=== PATIENT | female | born 1955 | race Caucasian/White ===

== ENCOUNTER 2016-05-28 07:11 | Emergency (ER) | payer OTHER ==
[~2016-05-28] VITALS: Ht 157.5 cm; Wt 47.6 kg
[~2016-05-28 07:11] MED LIST: ASPI-482 PO; DILT180C2 PO
[2016-05-28 07:40] VITALS: BP 165/90
--- NOTE | 2016-05-28 07:52 | PHYS DOC ---
Past Medical History Past Medical History: Arrhythmia, Other Additional Past Medical Histor: atrial flutter Past Surgical History: Appendectomy, Hysterectomy Additional Past Surgical Histo: cardiac ablation Alcohol Use: None Drug Use: None Adult General Chief Complaint Chief Complaint: LACERATION/AVULSION [facility] HPI Patient is a 61 year old female presents emergency room with complaint of cutting her left index finger on a blood culture bottle that was broken. 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 She denies any shattered glass striking her in the face/eyes. Patient comes to the emergency room instead of following the protocol for on-site employee injury. Patient herself denies any history of blood borne diseases. She states that she does not quite remember when her last tetanus shot was. Review of Systems Review of Systems Constitutional: Denies fever or chills [] Eyes: Denies change in visual acuity, redness, or eye pain [] HENT: Denies nasal congestion or sore throat [] Respiratory: Denies cough or shortness of breath [] Cardiovascular: No additional information not addressed in HPI [] GI: Denies abdominal pain, nausea, vomiting, bloody stools or diarrhea [] : Denies dysuria or hematuria [] Musculoskeletal: Denies back pain or joint pain [] Integument: Denies rash or skin lesions [] Neurologic: Denies headache, focal weakness or sensory changes [] Endocrine: Denies polyuria or polydipsia [] Allergies Allergies Allergies Coded Allergies Type Severity Reaction Last Updated Verified No Known Drug Allergies 12/05/14 No Physical Exam Physical Exam Constitutional: Well developed, well nourished, no acute distress, non-toxic appearance. [] HENT: Normocephalic, atraumatic, bilateral external ears normal, oropharynx moist, no oral exudates, nose normal. [] Eyes: PERRLA, EOMI, conjunctiva normal, no discharge. [] Neck: Normal range of motion, no tenderness, supple, no stridor. [] Cardiovascular:Heart rate regular rhythm, no murmur [] Lungs & Thorax: Bilateral breath sounds clear to auscultation [] Abdomen: Bowel sounds normal, soft, no tenderness, no masses, no pulsatile masses. [] Skin: Left index finger with a puncture of the distal phalanx, palmar aspect. There is no active bleeding. There is a small, palpable sliver of glass within the puncture itself. Back: No tenderness, no CVA tenderness. [] Extremities: No tenderness, no cyanosis, no clubbing, ROM intact, no edema. [] Neurologic: Alert and oriented X 3, normal motor function, normal sensory function, no focal deficits noted. [] Psychologic: Affect normal, judgement normal, mood normal. [] Current Patient Data Vital Signs Vital Signs Date Time Temp Pulse Resp B/P Pulse Ox O2 Delivery O2 Flow Rate FiO2 05/28/16 07:40 97.8 72 18 165/90 96 Room Air 97.8 EKG EKG [] Radiology/Procedures Radiology/Procedures Procedure note: The sliver of glass was manually removed with hemostats. Patient tolerated the procedure well. There was no bleeding after removal. Course & Med Decision Making Course & Med Decision Making Patient was seen by the occupational health nurse. She was given the appropriate paperwork and directions to where she needs to go for laboratory test and follow-up. Patient had no further questions for me. She requested discharge. Dragon Disclaimer Dragon Disclaimer This electronic medical record was generated, in whole or in part, using a voice recognition dictation system. Departure Departure Impression: Primary Impression: Exposure to blood Disposition: 01 HOME, SELF-CARE Condition: GOOD Referrals: DENISA FRANK MD (PCP) Patient Instructions: Body Fluid Exposure, Foreign Body-Brief Additional Instructions: 1. The sliver of glass was removed from your skin without difficulty. 2. Review the discharge instructions provided for self-care and reasons to return to the emergency department. 3. Be sure to follow the guidelines provided to you by the employee health nurse. GAVINO BEDOLLA May 28, 2016 07:52
== END 2016-05-28 08:32 | disposition home or self-care (01) ==
LOC: ER 07:11
DX: S61.211A Laceration without foreign body of left index finger without damage to nail, initial encounter (principal); I48.92 Unspecified atrial flutter; W25.XXXA Contact with sharp glass, initial encounter; Y93.89 Activity, other specified; Y99.8 Other external cause status; Y92.89 Other specified places as the place of occurrence of the external cause
CPT/HCPCS: 10120; 99284-25

== ENCOUNTER → 2016-08-12 | Outpatient (CLI) | payer OTHER ==
--- NOTE | 2016-08-12 16:16 | CARD ---
APPROVED REPORT EXAM: Two-dimensional and M-mode echocardiogram with Doppler and color Doppler. Other Information Quality : Good INDICATION Aflutter 2D DIMENSIONS RVDd2.8 (2.9-3.5cm)Left Atrium(2D)2.6 (1.6-4.0cm) IVSd0.8 (0.7-1.1cm)Aortic Root(2D)2.3 (2.0-3.7cm) LVDd3.7 (3.9-5.9cm)LVOT Diameter1.8 (1.8-2.4cm) PWd0.8 (0.7-1.1cm)LVDs2.3 (2.5-4.0cm) FS (%) 30.0 %SV38.3 ml LVEF(%)60.0 (>50%) Aortic Valve AoV Peak Jeff.114.3cm/sAoV VTI25.4cm AO Peak GR.5.2mmHgLVOT Peak Jeff.110.5cm/s LVOT VTI 23.77cmAO Mean GR.3mmHg JUJU (VMAX)2.97ie2GIW (VTI)2.31cm2 Mitral Valve MV E Ycicrctw16.9cm/sMV DECEL BNJW341uh MV A Aoseovyn56.4cm/sMV OPE00bc E/A Ratio1.5MVA (PHT)4.82cm2 TDI E/Lateral E'7.6E/Medial E'8.9 Tricuspid Valve TR P. Hwtdkest668bd/sRAP DQGLGTAC5zmYz TR Peak Gr.97prEoTWSX38elUs Pulmonary Vein S1 Mqtjyvgr70.2cm/sD2 Sqltbatr22.0cm/s PVa fepiqrez386ikmk LEFT VENTRICLE The left ventricle is normal size. There is normal left ventricular wall thickness. The left ventricu lar systolic function is normal. The Ejection Fraction is 55-60%. There is normal LV segmental wall m otion. Transmitral Doppler flow pattern is Grade II-pseudonormal filling dynamics. RIGHT VENTRICLE The right ventricle is normal size. The right ventricular systolic function is normal. ATRIA The left atrium size is normal. The right atrium size is normal. The interatrial septum is intact wit h no evidence for an atrial septal defect or patent foramen ovale as noted on 2-D or Doppler imaging. AORTIC VALVE The aortic valve is normal in structure and function. Doppler and Color Flow revealed no significant aortic regurgitation. There is no significant aortic valvular stenosis. MITRAL VALVE The mitral valve is normal in structure and function. There is no evidence of mitral valve prolapse. There is no mitral valve stenosis. Doppler and Color-flow revealed trace mitral regurgitation. TRICUSPID VALVE The tricuspid valve is normal in structure and function. Doppler and Color Flow revealed mild tricusp id regurgitation. The PA pressure was estimated at 27 mmHg. There is no tricuspid valve stenosis. PULMONIC VALVE The pulmonary valve is normal in structure and function. Doppler and Color Flow revealed mild pulmoni c valvular regurgitation. There is no pulmonic valvular stenosis. GREAT VESSELS The aortic root is normal in size. The ascending aorta is normal in size. The IVC is normal in size a nd collapses >50% with inspiration. PERICARDIAL EFFUSION There is no evidence of significant pericardial effusion. Critical Notification Critical Value: No <Conclusion> The left ventricular systolic function is normal. The Ejection Fraction is 55-60%. There is normal LV segmental wall motion. Trace mitral regurgitation. Mild tricuspid regurgitation. The PA pressure was estimated at 27 mmHg. There is no evidence of significant pericardial effusion.
== END | disposition home or self-care (01) ==
LOC: ECHO 06:52
PROVIDERS: ATTEND Internal Medicine Cardiovascular Disease
DX: I08.1 Rheumatic disorders of both mitral and tricuspid valves (principal)
CPT/HCPCS: 93306

== ENCOUNTER → 2017-04-01 | Outpatient (CLI) | payer OTHER ==
--- NOTE | 2017-04-02 08:51 | RAD ---
DATE: 04/01/2017 EXAM: DIGITAL SCREEN BILAT W/CAD HISTORY: Routine screening COMPARISON: 02/04/2016 This study was interpreted with the benefit of Computerized Aided Detection (CAD). The breast parenchyma is heterogeneously dense, which could reduce sensitivity of mammography. Breast parenchyma level C. FINDINGS: No new or enlarging breast densities are seen. Benign type calcifications are present. No suspicious microcalcifications have developed. IMPRESSION: Stable mammograms without evidence of malignancy. BI-RADS CATEGORY: 2 BENIGN FINDING(S) RECOMMENDED FOLLOW-UP: 12M 12 MONTH FOLLOW-UP PQRS compliance statement: Patient information was entered into a reminder system with a target due date for the next mammogram. Mammography is a sensitive method for finding small breast cancers, but it does not detect them all and is not a substitute for careful clinical examination. A negative mammogram does not negate a clinically suspicious finding and should not result in delay in biopsying a clinically suspicious abnormality. "Our facility is accredited by the [employer] Mammography Program."
== END | disposition home or self-care (01) ==
LOC: MAMMO 14:08
PROVIDERS: ATTEND Obstetrics & Gynecology
DX: Z12.31 Encounter for screening mammogram for malignant neoplasm of breast (principal)
CPT/HCPCS: G0202; 77067

== ENCOUNTER → 2017-06-11 | Outpatient (CLI) | payer OTHER ==
[2017-06-11 09:26] LABS: ADD MAN DIFF? NO
[2017-06-11 09:37] LABS: BASO % 1 % (0-3); EOS % 1 % (0-3); HEMATOCRIT 42.9 % (36.0-47.0); HEMOGLOBIN 14.4 g/dL (12.0-15.5); LYMPH # 1.4 x10^3/uL (1.0-4.8); LYMPH % 21 % (24-48); MEAN CORPUSCULAR HEMOGLOBIN 30 pg (25-35); MEAN CORPUSCULAR HGB CONC 34 g/dL (31-37); MEAN CORPUSCULAR VOLUME 91 fL (79-100); MONO # 0.4 x10^3/uL (0.0-1.1); MONO % 6 % (0-9); NEUT # 4.5 x10^3uL (1.8-7.7); NEUT % 72 % (31-73); PLATELET COUNT 190 x10^3/uL (140-400); RED BLOOD COUNT 4.74 x10^6/uL (3.50-5.40); RED CELL DISTRIBUTION WIDTH 13.5 % (11.5-14.5); WHITE BLOOD COUNT 6.3 x10^3/uL (4.0-11.0)
[2017-06-11 09:47] LABS: ALBUMIN 4.1 g/dL (3.4-5.0); ALBUMIN/GLOBULIN RATIO 1.4 (1.0-1.7); ALK PHOS 79 U/L (46-116); ALT (SGPT) 27 U/L (14-59); ANION GAP 7 (6-14); AST (SGOT) 19 U/L (15-37); BLOOD UREA NITROGEN 14 mg/dL (7-20); BUN/CREATININE RATIO 20 (6-20); CALCIUM 9.2 mg/dL (8.5-10.1); CARBON DIOXIDE 30 mmol/L (21-32); CHLORIDE 103 mmol/L (98-107); CHOLESTEROL 230 mg/dL (0-200); CHOLESTEROL/HDL RATIO 2.4; CREATININE 0.7 mg/dL (0.6-1.0); GFR 84.2; GLUCOSE 108 mg/dL (70-99); HDLC 97 mg/dL (40-60); LDLC 121 mg/dL (0-100); LIPASE 146 U/L (73-393); NON-HDL CHOLESTEROL 133 mg/dL (0-129); POTASSIUM 3.9 mmol/L (3.5-5.1); SODIUM 140 mmol/L (136-145); TOTAL BILIRUBIN 0.7 mg/dL (0.2-1.0); TOTAL PROTEIN 7.1 g/dL (6.4-8.2); TRIGLYCERIDES 61 mg/dL (0-150); VLDLC 12 mg/dL (0-40)
[2017-06-12 01:14] LABS: HEMOGLOBIN A1C 5.6 % (4.8-5.6)
== END | disposition home or self-care (01) ==
LOC: LAB 05:39
DX: Z13.220 Encounter for screening for lipoid disorders (principal); R10.9 Unspecified abdominal pain; Z79.899 Other long term (current) drug therapy
CPT/HCPCS: 36415; 80053; 80061; 83036; 83690; 85025

== ENCOUNTER → 2017-06-16 | Outpatient (CLI) | payer OTHER | END | disposition home or self-care (01) | LOC: US 07:10 | DX: R10.9 Unspecified abdominal pain (principal) | CPT/HCPCS: 76700 ==

== ENCOUNTER → 2017-09-17 | Outpatient (CLI) | payer OTHER ==
[2017-09-17 07:01] LABS: ADD MAN DIFF? NO
[2017-09-17 07:21] LABS: BASO # 0.1 x10^3/uL (0.0-0.2); BASO % 1 % (0-3); EOS # 0.1 x10^3/uL (0.0-0.7); EOS % 2 % (0-3); HEMATOCRIT 44.7 % (36.0-47.0); HEMOGLOBIN 15.3 g/dL (12.0-15.5); LYMPH # 1.1 x10^3/uL (1.0-4.8); LYMPH % 19 % (24-48); MEAN CORPUSCULAR HEMOGLOBIN 31 pg (25-35); MEAN CORPUSCULAR HGB CONC 34 g/dL (31-37); MEAN CORPUSCULAR VOLUME 89 fL (79-100); MONO # 0.4 x10^3/uL (0.0-1.1); MONO % 8 % (0-9); NEUT % 70 % (31-73); PLATELET COUNT 192 x10^3/uL (140-400); RED BLOOD COUNT 5.01 x10^6/uL (3.50-5.40); RED CELL DISTRIBUTION WIDTH 13.5 % (11.5-14.5); WHITE BLOOD COUNT 5.7 x10^3/uL (4.0-11.0)
[2017-09-17 07:36] LABS: ALBUMIN 4.3 g/dL (3.4-5.0); ALBUMIN/GLOBULIN RATIO 1.3 (1.0-1.7); ALK PHOS 90 U/L (46-116); ALT (SGPT) 26 U/L (14-59); ANION GAP 8 (6-14); AST (SGOT) 22 U/L (15-37); BLOOD UREA NITROGEN 19 mg/dL (7-20); BUN/CREATININE RATIO 27 (6-20); CALCIUM 9.5 mg/dL (8.5-10.1); CARBON DIOXIDE 30 mmol/L (21-32); CHLORIDE 102 mmol/L (98-107); CHOLESTEROL 240 mg/dL (0-200); CREATININE 0.7 mg/dL (0.6-1.0); GFR 84.2; GLUCOSE 105 mg/dL (70-99); HDLC 88 mg/dL (40-60); MAGNESIUM 2.6 mg/dL (1.8-2.4); POTASSIUM 4.1 mmol/L (3.5-5.1); SODIUM 140 mmol/L (136-145); TOTAL BILIRUBIN 0.6 mg/dL (0.2-1.0); TOTAL PROTEIN 7.5 g/dL (6.4-8.2); TRIGLYCERIDES 69 mg/dL (0-150); VLDLC 14 mg/dL (0-40)
[2017-09-17 07:37] LABS: LDLC 138 mg/dL (0-100); NON-HDL CHOLESTEROL 152 mg/dL (0-129)
[2017-09-17 07:40] LABS: CHOLESTEROL/HDL RATIO 2.7
[2017-09-17 07:46] LABS: THYROID STIM HORMONE (TSH) 2.717 uIU/mL (0.358-3.74)
[2017-09-17 09:01] LABS: VITAMIN-B12 518 pg/mL (247-911)
[2017-09-17 09:02] LABS: FOLATE 13.23 ng/ml (3.2-20.0)
[2017-09-17 09:23] LABS: BILIRUBIN,URINE NEGATIVE (NEG); CLARITY,URINE CLEAR; COLOR,URINE YELLOW; GLUCOSE,URINE NEGATIVE (NEG); NITRITE,URINE NEGATIVE (NEG); PH,URINE 5.5; PROTEIN,URINE NEGATIVE (NEG-TRACE); UROBILINOGEN,URINE 0.2 mg/dL (0.2 mg/dL)
[2017-09-17 09:41] LABS: BACTERIA,URINE 0 /HPF (0-FEW); RBC,URINE 0 /HPF (0-2)
[2017-09-17 12:19] LABS: THYROXINE 6.8 ug/dL (4.5-12.0)
[2017-09-18 02:21] LABS: HEMOGLOBIN A1C 5.5 % (4.8-5.6)
== END | disposition home or self-care (01) ==
LOC: LAB 06:56
DX: I48.92 Unspecified atrial flutter (principal); E78.5 Hyperlipidemia, unspecified; E55.9 Vitamin D deficiency, unspecified; R79.89 Other specified abnormal findings of blood chemistry
CPT/HCPCS: 36415; 80053; 80061; 81001; 82306; 82607; 82746; 83036; 83735; 84436; 84443; 85025; 87086

== ENCOUNTER → 2017-12-03 | Outpatient (CLI) | payer OTHER ==
--- NOTE | 2017-12-03 15:03 | RAD ---
EXAM: Left calcaneus, 2 views. HISTORY: Pain. COMPARISON: None. FINDINGS: 2 views of the calcaneus are obtained. There is no fracture, dislocation or subluxation. There is a tiny plantar spur. IMPRESSION: No acute osseous finding. Electronically signed by: Yumiko East MD (12/03/2017 3:00 PM) [id number]
== END | disposition home or self-care (01) ==
LOC: RAD 10:29
PROVIDERS: ATTEND Family Medicine
DX: M79.672 Pain in left foot (principal); E55.9 Vitamin D deficiency, unspecified; E78.5 Hyperlipidemia, unspecified; Z90.49 Acquired absence of other specified parts of digestive tract; Z90.710 Acquired absence of both cervix and uterus
CPT/HCPCS: 73650

== ENCOUNTER → 2017-12-14 | Outpatient (CLI) | payer OTHER ==
--- NOTE | 2017-12-15 14:08 | PATHOLOGY ---
[facility] Accession Number: [id number] . 01 Material submitted: . PART A: SKIN PUNCH LEFT MID BACK PART B: SKIN SHAVE RIGHT MID CALF PART C: SKIN SHAVE LEFT POSTERIOR SHOULDER . 01 Clinician provided ICD-10: D48.5 . 01 Clinical history: . None provided. . 02 Diagnosis: Part A: SKIN PUNCH LEFT MID BACK: COMPOUND MELANOCYTIC NEVUS, INFLAMED. . Part B: SKIN SHAVE RIGHT MID CALF: SEBORRHEIC KERATOSIS. . Part C: SKIN SHAVE LEFT POSTERIOR SHOULDER: SEBORRHEIC KERATOSIS, PIGMENTED, IRRITATED. . A12/15/2017 . 02 Electronically signed: . Lorne Burr MD, Pathologist NPI- [id number] . 01 Gross description: . A. Received in formalin labeled "Claudette Ramey, left mid back, pinkish papular lesion" is a skin punch biopsy which measures 0.6 x 0.4 cm and is excised to a maximum depth of 0.5 cm. The skin surface displays a rodas-brown smooth nodular lesion measuring 0.5 x 0.4 cm. The margin is inked and the specimen is bisected and submitted in cassette A1. . B. Received in formalin labeled "Claudette Ramey, right mid calf area" is a skin shave biopsy which measures 0.7 x 0.5 x 0.1 cm. The skin surface displays an ill-defined rodas-brown possible lesion measuring 0.6 x 0.4 cm. The margin is inked and the specimen is bisected and submitted in cassette B1. . C. Received in formalin labeled "Claudette Ramey, atheromatous excoriated lesion on left posterior shoulder upper scapula area" is a 0.7 x 0.5 x 0.2 cm skin shave biopsy. The skin surface is diffusely involved with a rodas-brown roughened possible lesion. The margin is inked and the specimen is bisected and submitted in cassette C1. ([facility]; 12/14/2017) SYC/SYC . 02 Pathologist provided ICD-10: D22.5, L82.1, L82.1 . 02 CPT . 111573, 215721, 847145 Performed at: 01 [facility] [address] [place] [id number] MD Adair Martínez MD Phone: [phone] Performed at: 02 [place] [id number] [id number] MD Juliocesar Carmona MD Phone: [phone]
== END | disposition home or self-care (01) ==
LOC: SPEC 14:58
PROVIDERS: ATTEND Family Medicine
DX: D48.5 Neoplasm of uncertain behavior of skin (principal); E55.9 Vitamin D deficiency, unspecified; Z90.49 Acquired absence of other specified parts of digestive tract; Z90.710 Acquired absence of both cervix and uterus
CPT/HCPCS: 88305

== ENCOUNTER → 2018-03-03 | Outpatient (CLI) | payer OTHER ==
--- NOTE | 2018-03-03 11:02 | CARD ---
MR#: [id number] Date of Study: 03/03/2018 Ordering Physician: CYNTHIA MARIN, Referring Physician: CYNTHIA MARIN Tech: Susan Perkins RDCS APPROVED REPORT EXAM: Two-dimensional and M-mode echocardiogram with Doppler and color Doppler. Other Information Quality : Good INDICATION Atrial Fibrillation 2D DIMENSIONS RVDd2.8 (2.9-3.5cm)Left Atrium(2D)2.2 (1.6-4.0cm) IVSd0.5 (0.7-1.1cm)Aortic Root(2D)2.4 (2.0-3.7cm) LVDd3.8 (3.9-5.9cm)LVOT Diameter1.9 (1.8-2.4cm) PWd0.6 (0.7-1.1cm)LVDs3.0 (2.5-4.0cm) FS (%) 27.0 %SV29.1 ml LVEF(%)55.0 (>50%) Aortic Valve AoV Peak Jeff.110.0cm/sAoV VTI22.2cm AO Peak GR.4.8mmHgLVOT Peak Jeff.120.3cm/s LVOT VTI 25.92cmAO Mean GR.3mmHg JUJU (VMAX)3.95np3BFG (VTI)3.48cm2 Mitral Valve MV E Gdjpireg77.1cm/sMV DECEL SMXQ521ju MV A Leyxxiju97.6cm/sMV ZMG34nd E/A Ratio1.4MVA (PHT)4.43cm2 TDI E/Lateral E'6.9E/Medial E'9.8 Tricuspid Valve TR P. Lyqzlykb262ra/sRAP YCPPSXUM2luHg TR Peak Gr.34upRlKRPI69fhTj Pulmonary Vein S1 Fldlozyr06.8cm/sD2 Zeiqqdnr44.2cm/s LEFT VENTRICLE The left ventricle is normal size. There is normal left ventricular wall thickness. The left ventricu lar systolic function is normal and the ejection fraction is within normal range. The Ejection Fracti on is 55-60%. There is normal LV segmental wall motion. Transmitral Doppler flow pattern is Grade I-a bnormal relaxation pattern. RIGHT VENTRICLE The right ventricle is normal size. The right ventricular systolic function is normal. ATRIA The left atrium size is normal. The right atrium size is normal. The interatrial septum is intact wit h no evidence for an atrial septal defect or patent foramen ovale as noted on 2-D or Doppler imaging. AORTIC VALVE The aortic valve is normal in structure and function. Doppler and Color Flow revealed no significant aortic regurgitation. There is no significant aortic valvular stenosis. MITRAL VALVE The mitral valve is calcified but opens well. There is no evidence of mitral valve prolapse. There is no mitral valve stenosis. Doppler and Color-flow revealed trace to mild mitral regurgitation. TRICUSPID VALVE The tricuspid valve is normal in structure and function. Doppler and Color Flow revealed mild eccentr ic tricuspid regurgitation. The PA pressure was estimated at 24 mmHg. There is no tricuspid valve kei nosis. PULMONIC VALVE The pulmonic valve is not well visualized. Doppler and Color Flow revealed trace to mild pulmonic zoe vular regurgitation. There is no pulmonic valvular stenosis. GREAT VESSELS The aortic root is normal in size. The ascending aorta is normal in size. The IVC is normal in size a nd collapses >50% with inspiration. PERICARDIAL EFFUSION There is no evidence of significant pericardial effusion. Critical Notification Critical Value: No <Conclusion> The left ventricle is normal size. The left ventricular systolic function is normal and the ejection fraction is within normal range. The Ejection Fraction is 55-60%. There is no significant aortic valvular stenosis. Doppler and Color Flow revealed no significant aortic regurgitation. Doppler and Color-flow revealed trace to mild mitral regurgitation. Doppler and Color Flow revealed mild eccentric tricuspid regurgitation. The PA pressure was estimated at 24 mmHg. Signed by : Hilario June MD Electronically Approved : 03/03/2018 11:00:34
== END | disposition home or self-care (01) ==
LOC: ECHO 09:27
PROVIDERS: ATTEND Internal Medicine Cardiovascular Disease
DX: I48.92 Unspecified atrial flutter (principal); I07.1 Rheumatic tricuspid insufficiency
CPT/HCPCS: 93306

== ENCOUNTER → 2018-03-05 | Outpatient (CLI) | payer OTHER ==
--- NOTE | 2018-03-05 14:20 | CARD ---
MR#: [id number] Date of Study: 03/05/2018 Ordering Physician: CYNTHIA ZAMORA, Referring Physician: CYNTHIA ZAMORA, Tech: APPROVED REPORT PROCEDURE: Successful implantation of [employer] Confirm loop recorder INDICATIONS: Atrial fibrillation/flutter burden PROCEDURE DETAILS: An informed consent was obtained from patient. Patient was brought to the procedure suite and her le ft chest and shoulder were prepped and draped in the usual fashion. 20 mL of 2% lidocaine was infilt rated into the skin and subcutaneous tissues for local anesthesia. An incision was made in the left third intercostal space 1 inch from midsternal line and using the introducer provided with the kit a track was created in subcutaneous tissue. Subsequently,a [employer] Confirm loop recorder serial num peña [id number] was placed in the subcutaneous tissue. Hemostasis was secured. Patient tolerated the pro cedure well. There were no immediate complications. At the end of procedure, the device showed sens ing amplitude of 1.06 mV. CONCLUSION: Successful implantation of [employer] Confirm loop recorder to assess atrial fib/flutter burden Signed by : Cynthia Zamora, Electronically Approved : 03/05/2018 14:19:41
== END | disposition home or self-care (01) ==
LOC: EDSTATUS 13:55 → LINQ 13:56
PROVIDERS: ATTEND Internal Medicine Cardiovascular Disease
DX: I48.91 Unspecified atrial fibrillation (principal)
CPT/HCPCS: 33282; C1764

== ENCOUNTER → 2018-04-29 | Outpatient (CLI) | payer OTHER ==
--- NOTE | 2018-04-30 10:29 | RAD ---
DATE: 04/29/2018 EXAM: MAMMO LELE SCREENING BILATERAL HISTORY: Routine screening COMPARISON: 04/01/2017 This study was interpreted with the benefit of Computerized Aided Detection (CAD). Breast Density: HETERO The breast parenchyma is heterogenously dense, which could reduce sensitivity of mammography. Breast parenchyma level C. FINDINGS: 2-D and 3-D tomosynthesis imaging was performed in CC and MLO projections. No new or enlarging breast densities are seen. Benign type calcifications are present. No suspicious microcalcifications have developed. IMPRESSION: Stable mammograms without evidence of malignancy. BI-RADS CATEGORY: 2 BENIGN FINDING(S) RECOMMENDED FOLLOW-UP: 12M 12 MONTH FOLLOW-UP PQRS compliance statement: Patient information was entered into a reminder system with a target due date for the next mammogram. Mammography is a sensitive method for finding small breast cancers, but it does not detect them all and is not a substitute for careful clinical examination. A negative mammogram does not negate a clinically suspicious finding and should not result in delay in biopsying a clinically suspicious abnormality. "Our facility is accredited by the [employer] Mammography Program."
== END | disposition home or self-care (01) ==
LOC: MAMMO 10:03
PROVIDERS: ATTEND Obstetrics & Gynecology
DX: Z12.31 Encounter for screening mammogram for malignant neoplasm of breast (principal)
CPT/HCPCS: 77063; 77067

== ENCOUNTER → 2018-07-21 | Outpatient (CLI) | payer OTHER ==
[2018-06-07 11:15] VITALS: BP 140/74
[~2018-07-21] MED LIST changes: +DABI150C PO; +FLEC100T PO
[2018-07-21 08:37] LABS: ALBUMIN 4.4 g/dL (3.4-5.0); ALBUMIN/GLOBULIN RATIO 1.4 (1.0-1.7); CREATININE 0.8 mg/dL (0.6-1.0); TOTAL BILIRUBIN 0.7 mg/dL (0.2-1.0); TOTAL PROTEIN 7.5 g/dL (6.4-8.2)
[2018-07-21 08:42] LABS: CHOLESTEROL/HDL RATIO 2.6
[2018-07-21 08:51] LABS: BASO # 0.1 x10^3/uL (0.0-0.2); BASO % 1 % (0-3); EOS # 0.1 x10^3/uL (0.0-0.7); EOS % 2 % (0-3); HEMATOCRIT 43.2 % (36.0-47.0); HEMOGLOBIN 14.1 g/dL (12.0-15.5); LYMPH # 1.1 x10^3/uL (1.0-4.8); LYMPH % 19 % (24-48); MEAN CORPUSCULAR HEMOGLOBIN 30 pg (25-35); MEAN CORPUSCULAR HGB CONC 33 g/dL (31-37); MEAN CORPUSCULAR VOLUME 91 fL (79-100); MONO # 0.4 x10^3/uL (0.0-1.1); MONO % 6 % (0-9); NEUT # 4.3 x10^3uL (1.8-7.7); NEUT % 73 % (31-73); PLATELET COUNT 247 x10^3/uL (140-400); RED BLOOD COUNT 4.76 x10^6/uL (3.50-5.40); RED CELL DISTRIBUTION WIDTH 14.1 % (11.5-14.5); WHITE BLOOD COUNT 5.9 x10^3/uL (4.0-11.0)
[2018-07-22 00:08] LABS: HEMOGLOBIN A1C 5.7 % (4.8-5.6)
== END | disposition home or self-care (01) ==
LOC: LAB 07:50
PROVIDERS: ATTEND Nurse Practitioner
DX: Z00.00 Encounter for general adult medical examination without abnormal findings (principal); Z13.1 Encounter for screening for diabetes mellitus; Z13.220 Encounter for screening for lipoid disorders
CPT/HCPCS: 36415; 80053; 80061; 83036; 84443; 85025

== ENCOUNTER → 2018-12-15 | Outpatient (CLI) | payer OTHER ==
[2018-06-07 11:15] VITALS: BP 140/74
--- NOTE | 2018-12-15 16:59 | RAD ---
Examination: LIMITED ABDOMINAL DOPPLER History: Celiac artery stenosis Comparison/Correlation: 06/16/2017 abdominal ultrasound exam Findings: Vascular ultrasound exam of the abdomen was performed. Spectral and color Doppler imaging was performed. Abdominal aortic diameter of up to 2.2 cm evident. Abdominal aortic flow velocity of 89.1 cm/s is evident. No abdominal aortic aneurysm. Superior mesenteric artery flow velocities of 160 cm/s proximally and 103 cm/s distally is noted. This is within normal limits of less than 250 cm/s flow velocity. Celiac artery flow velocity of 428 cm/s proximally and 293 cm/s at the midportion is identified. Hepatic arterial flow is normal and hepatopedal. Partially visualized inferior vena cava is unremarkable. Impression: Elevated celiac artery velocity of up to 428 cm/s is significant involving the upper limit of normal of 200 cm/s. Hemodynamic stenosis of the celiac artery. Electronically signed by: Abiel Painting MD (12/15/2018 4:56 PM) [facility]
== END | disposition home or self-care (01) ==
LOC: US 14:29
PROVIDERS: ATTEND Family Medicine
DX: I77.4 Celiac artery compression syndrome (principal)
CPT/HCPCS: 93976

== ENCOUNTER → 2019-05-16 | Outpatient (CLI) | payer OTHER ==
[2018-06-07 11:15] VITALS: BP 140/74
--- NOTE | 2019-05-17 09:03 | RAD ---
DATE: May 16, 2019 EXAM: MAMMO LELE SCREENING BILATERAL HISTORY: Screening study. COMPARISON: 2016 and 2018 This study was interpreted with the benefit of Computerized Aided Detection (CAD). 2-D digital mammographic views of both breasts were performed in the CC and MLO projections. 3-D digital tomosynthesis images of both breasts were performed in the CC and MLO projections and reviewed on a computer workstation. FINDINGS: Breast Density: HETERO The breast parenchyma is heterogenously dense, which could reduce sensitivity of mammography. Breast parenchyma level C.. There are no dominant suspicious masses, suspicious microcalcifications or evidence of architectural distortion. IMPRESSION: No mammographic indicators for malignancy. BI-RADS CATEGORY: 1 NEGATIVE RECOMMENDED FOLLOW-UP: 12M 12 MONTH FOLLOW-UP PQRS compliance statement: Patient information was entered into a reminder system with a target due date May 17, 2020 for the next mammogram. Mammography is a sensitive method for finding small breast cancers, but it does not detect them all and is not a substitute for careful clinical examination. A negative mammogram does not negate a clinically suspicious finding and should not result in delay in biopsying a clinically suspicious abnormality. "Our facility is accredited by the [employer] Mammography Program." The patient's breast density may affect the ability of mammography to detect breast cancer. There are 4 categories of breast density, A, B, C and D. Breast density A means that most of the breast tissue is replaced with adipose tissue and therefore is not dense. Breast density B means that the breast tissue is mildly dense and scattered. Breast density C means that the breast tissue is heterogeneously dense. Breast density D means that the breast tissue is very dense. Breast densities especially C and D may decrease the sensitivity of mammography to detect breast cancer. Therefore, the patient may benefit from 3-D breast mammography (3D breast tomography) as a part of their screening mammogram. Insurance may or may not pay for this additional imaging. The patient's breast density based on today's mammogram is category C.
== END | disposition home or self-care (01) ==
LOC: MAMMO 15:42
PROVIDERS: ATTEND Family Medicine
DX: Z12.31 Encounter for screening mammogram for malignant neoplasm of breast (principal); N64.89 Other specified disorders of breast
CPT/HCPCS: 77063; 77067

== ENCOUNTER → 2019-09-09 | Outpatient (CLI) | payer OTHER ==
[2018-06-07 11:15] VITALS: BP 140/74
[2019-09-09 07:50] LABS: BASO # 0.1 x10^3/uL (0.0-0.2); BASO % 1 % (0-3); EOS # 0.1 x10^3/uL (0.0-0.7); EOS % 2 % (0-3); HEMATOCRIT 42.5 % (36.0-47.0); HEMOGLOBIN 14.3 g/dL (12.0-15.5); LYMPH # 1.1 x10^3/uL (1.0-4.8); LYMPH % 24 % (24-48); MEAN CORPUSCULAR HEMOGLOBIN 31 pg (25-35); MEAN CORPUSCULAR HGB CONC 34 g/dL (31-37); MEAN CORPUSCULAR VOLUME 91 fL (79-100); MONO # 0.4 x10^3/uL (0.0-1.1); MONO % 9 % (0-9); NEUT # 2.8 x10^3/uL (1.8-7.7); NEUT % 63 % (31-73); PLATELET COUNT 192 x10^3/uL (140-400); RED BLOOD COUNT 4.69 x10^6/uL (3.50-5.40); RED CELL DISTRIBUTION WIDTH 13.6 % (11.5-14.5); WHITE BLOOD COUNT 4.4 x10^3/uL (4.0-11.0)
[2019-09-09 07:55] LABS: BILIRUBIN,URINE NEGATIVE (NEG); CLARITY,URINE CLEAR; COLOR,URINE YELLOW; NITRITE,URINE NEGATIVE (NEG); PROTEIN,URINE NEGATIVE (NEG-TRACE); UROBILINOGEN,URINE 0.2 mg/dL (0.2 mg/dL)
[2019-09-09 08:03] LABS: BACTERIA,URINE 0 /HPF (0-FEW); RBC,URINE 0 /HPF (0-2); SQUAMOUS EPITHELIAL CELL,UR FEW /LPF; WBC,URINE 0 /HPF (0-4)
[2019-09-09 08:06] LABS: ALBUMIN/GLOBULIN RATIO 1.4 (1.0-1.7); CALCIUM 8.4 mg/dL (8.5-10.1); CREATININE 0.8 mg/dL (0.6-1.0); GFR 71.8; POTASSIUM 4.1 mmol/L (3.5-5.1); TOTAL BILIRUBIN 0.6 mg/dL (0.2-1.0); TOTAL PROTEIN 6.9 g/dL (6.4-8.2)
[2019-09-09 08:08] LABS: CHOLESTEROL/HDL RATIO 2.5
--- NOTE | 2019-09-09 13:22 | RAD ---
Left hip 2 views with one view pelvis. HISTORY: Left hip pain, M 25.552 AP view was taken of the pelvis. Pelvis is intact without osseous abnormality. Right hip appears unremarkable. AP and lateral views were taken the left hip. There is no fracture or osseous abnormality. IMPRESSION: 1. Negative left hip. 2. Negative pelvis. Electronically signed by: Zaheer Ochoa MD (09/09/2019 1:19 PM) [id number]
--- NOTE | 2019-09-09 14:07 | RAD ---
Five view lumbar spine series: Clinical indications: Left hip pain for one year. No definite injury. Findings: No fracture of the transverse processes is seen.No compression fracture is evident.No spondylolisthesis is seen.No discitis or osteolytic process is seen.No radiolucent pars defect is seen.No significant facet arthropathy is seen.No significant degenerative endplate spurring is present. Impression: No significant osseous abnormality of the lumbar spine is seen. Electronically signed by: Oscar Benavides MD (09/09/2019 2:04 PM) [id number]
[2019-09-10 03:08] LABS: HEMOGLOBIN A1C 5.8 % (4.8-5.6)
== END ==
LOC: RAD 06:35
PROVIDERS: ATTEND Family Medicine
DX: Z00.00 Encounter for general adult medical examination without abnormal findings (principal); I48.91 Unspecified atrial fibrillation; I48.92 Unspecified atrial flutter; M25.552 Pain in left hip
CPT/HCPCS: 36415; 72110; 73502; 80053; 80061; 81001; 83036; 83735; 84443; 85025

== ENCOUNTER → 2020-05-24 | Outpatient (CLI) | payer OTHER ==
[2018-06-07 11:15] VITALS: BP 140/74
--- NOTE | 2020-05-28 10:13 | RAD ---
DATE: 05/24/2020 12:41 PM EXAM: MAMMO LELE SCREENING BILATERAL HISTORY: Screening COMPARISON: 05/16/2019, 04/29/2018 Bilateral CC and MLO views of the breasts were performed. Bilateral breast tomosynthesis was performed in CC and MLO projections. This study was interpreted with the benefit of Computerized Aided Detection (CAD). FINDINGS: Breast Density: SCATTERED The breast parenchyma shows scattered fibroglandular densities. Breast parenchyma level B Cardiac event monitor in the superior medial left breast is redemonstrated. No suspicious masses, microcalcifications or architectural distortion is present to suggest malignancy in either breast. The visualized axillae are unremarkable. IMPRESSION: No mammographic evidence of malignancy. BI-RADS CATEGORY: 1 NEGATIVE RECOMMENDED FOLLOW-UP: 12M 12 MONTH FOLLOW-UP Annual screening mammography is recommended, unless clinically indicated sooner based on symptoms or change in physical exam. PQRS compliance statement: Patient information was entered into a reminder system with a target due date for the next mammogram. Mammography is a sensitive method for finding small breast cancers, but it does not detect them all and is not a substitute for careful clinical examination. A negative mammogram does not negate a clinically suspicious finding and should not result in delay in biopsying a clinically suspicious abnormality. "Our facility is accredited by the [employer] Mammography Program."
== END ==
LOC: MAMMO 12:36
PROVIDERS: ATTEND Family Medicine
DX: Z12.31 Encounter for screening mammogram for malignant neoplasm of breast (principal)
CPT/HCPCS: 77063; 77067

== ENCOUNTER → 2021-02-12 | Outpatient (CLI) | payer OTHER ==
[2018-06-07 11:15] VITALS: BP 140/74
== END ==
LOC: LAB 06:22
PROVIDERS: ATTEND Internal Medicine Pulmonary Disease
DX: Z20.822 Contact with and (suspected) exposure to COVID-19 (principal)
CPT/HCPCS: U0003; U0005

== ENCOUNTER → 2021-02-18 | Outpatient (CLI) | payer OTHER ==
[2018-06-07 11:15] VITALS: BP 140/74
== END ==
LOC: LAB 09:42
PROVIDERS: ATTEND Internal Medicine Pulmonary Disease
DX: Z20.822 Contact with and (suspected) exposure to COVID-19 (principal)
CPT/HCPCS: U0003; U0005

== ENCOUNTER → 2021-06-07 | Outpatient (CLI) | payer OTHER ==
[2018-06-07 11:15] VITALS: BP 140/74
[2021-06-07 08:39] LABS: BASO % 1 % (0-3); EOS # 0.1 x10^3/uL (0.0-0.7); EOS % 2 % (0-3); HEMATOCRIT 43.1 % (36.0-47.0); HEMOGLOBIN 14.3 g/dL (12.0-15.5); LYMPH # 0.8 x10^3/uL (1.0-4.8); LYMPH % 16 % (24-48); MEAN CORPUSCULAR HEMOGLOBIN 30 pg (25-35); MEAN CORPUSCULAR HGB CONC 33 g/dL (31-37); MEAN CORPUSCULAR VOLUME 89 fL (79-100); MONO # 0.4 x10^3/uL (0.0-1.1); MONO % 8 % (0-9); NEUT # 3.7 x10^3/uL (1.8-7.7); NEUT % 74 % (31-73); PLATELET COUNT 199 x10^3/uL (140-400); RED BLOOD COUNT 4.82 x10^6/uL (3.50-5.40); RED CELL DISTRIBUTION WIDTH 13.6 % (11.5-14.5); WHITE BLOOD COUNT 5.1 x10^3/uL (4.0-11.0)
[2021-06-07 08:56] LABS: ALBUMIN 4.3 g/dL (3.4-5.0); ALBUMIN/GLOBULIN RATIO 1.7 (1.0-1.7); CREATININE 0.7 mg/dL (0.6-1.0); GFR 83.2; MAGNESIUM 2.4 mg/dL (1.8-2.4); POTASSIUM 4.5 mmol/L (3.5-5.1); TOTAL BILIRUBIN 0.4 mg/dL (0.2-1.0); TOTAL PROTEIN 6.8 g/dL (6.4-8.2)
[2021-06-07 09:02] LABS: CHOLESTEROL/HDL RATIO 2.5
[2021-06-08 00:08] LABS: HEMOGLOBIN A1C 5.7 % (4.8-5.6)
== END ==
LOC: SPEC 08:01
PROVIDERS: ATTEND Family Medicine
DX: Z00.00 Encounter for general adult medical examination without abnormal findings (principal); I48.91 Unspecified atrial fibrillation; I48.92 Unspecified atrial flutter
CPT/HCPCS: 36415; 80053; 80061; 82306; 82607; 83036; 83735; 84443; 85025

== ENCOUNTER → 2021-07-04 | Outpatient (CLI) | payer OTHER ==
[2018-06-07 11:15] VITALS: BP 140/74
--- NOTE | 2021-07-04 16:52 | RAD ---
Bilateral digital screening 2-D and 3-D (digital breast tomosynthesis) mammogram: Reason for examination: Routine screening. Comparison: Mammograms from 05/24/2020, 05/16/2019, and 04/29/2018. Interpretation was made with the benefit of CAD. FINDINGS: Breast density: Category B. There are scattered areas of fibroglandular density. No suspicious breast mass, malignant appearing calcifications, or architectural distortion is seen. T here has been removal of the cardiac event monitoring device from the 12:00 position of the left gurpreet st at posterior depth. There is an oval circumscribed density remaining in this location likely due t o a seroma or scarring. This is same shape as the implanted device. IMPRESSION: No evidence of malignancy. Assessment: BI-RADS 2. Benign findings. Recommendation: Routine screening mammograms. The patient will receive a letter with the results in the mail. Patient information will be entered i nto the mammography reminder system with a target recall date for the next mammogram. A reminder [place] will be generated. Electronically signed by: Samia Varner MD (07/04/2021 4:50 PM) [id number]
== END ==
LOC: MAMMO 14:28
PROVIDERS: ATTEND Family Medicine
DX: Z12.31 Encounter for screening mammogram for malignant neoplasm of breast (principal)
CPT/HCPCS: 77063; 77067